=== PATIENT | female | born 1985 | race Asian ===

== ENCOUNTER 2017-01-02 00:12 | Inpatient (IN) | payer BC ==
[2017-01-02] MEDS ORDERED: OBEPIDURAL* 250 ML ONE ×2 (00:41→10:33)
[2017-01-02 00:57] LABS: Hematocrit 33 % (35-47); Hemoglobin 11.6 g/dl (12.0-16.0); Mean Corpuscular HGB Conc 35 g/dl (31-36); Mean Corpuscular Hemoglobin 29 pg (27-31); Mean Corpuscular Volume 82 fL (80-97); Mean Platelet Volume 11 um3 (7.4-10.4); Red Blood Count 4.05 10^6/ul (4.0-5.4); Red Cell Distribution Width 14 % (10.5-15); White Blood Count 7.9 10^3/ul (3.5-10.8)
[2017-01-02] MEDS ORDERED: Nalbuphine* 20 MG/ML 1 ML VIAL IV PRN (01:20)
[2017-01-02] MEDS ORDERED: Promethazine INJ(RESTRICTED)* 25 MG/ML 1 ML VIAL IV ONE (01:22)
[2017-01-02] MEDS ORDERED: Promethazine INJ(RESTRICTED)* 25 MG/ML 1 ML VIAL ONE (01:23)
[2017-01-02] MEDS ORDERED: Nalbuphine* 20 MG/ML 1 ML VIAL ONE (01:23)
[2017-01-02] MEDS ORDERED: Phenylephrine IV* 40 MCG/ML 10 ML SYRINGE IV PUSH PRN ×2 (10:57)
[2017-01-02] MEDS ORDERED: Sodium Citrate/Citric Acid* 15 ML UDC PO PRN (10:57)
[2017-01-02] MEDS ORDERED: Famotidine TAB* 20 MG PO PRN (10:57)
[2017-01-02] MEDS ORDERED: OBEPIDURAL* 250 ML EPIDURAL SCH (11:00)
[2017-01-02] MEDS ORDERED: Oxytocin in LR* 20 UNITS/1,000 ML BAG IVPB ONE (12:55)
[2017-01-02] MEDS ORDERED: Oxytocin in LR* 20 UNITS/1,000 ML BAG IVPB SCH ×2 (13:00→17:00)
[2017-01-02] MEDS ORDERED: Measles, Mumps,Rubella VACC* 0.5 ML/VIAL SUBCUT ONE (16:05)
[2017-01-02] MEDS ORDERED: oxyCODONE/Acetamin 5/325 MG* TAB PO PRN (16:05)
[2017-01-02] MEDS ORDERED: Dibucaine 1% 28.35 GM TUBE PR PRN (16:05)
[2017-01-02] MEDS ORDERED: Acetaminophen TAB* 325 MG PO PRN (16:05)
[2017-01-02] MEDS ORDERED: Glycerin ADULT SUPP PR PRN (16:05)
[2017-01-02] MEDS ORDERED: Witch Hazel PAD* JAR TOPICAL PRN (16:05)
[2017-01-02] MEDS ORDERED: ceFOXitin 2 GM IVPREMIX* 2 GM/50 ML BAG IVPB ONE (16:07)
[2017-01-02] MEDS: Ibuprofen TAB* 600 MG PO PRN (17:11)
[2017-01-02] MEDS ORDERED: Simethicone TAB* 80 MG TAB.CHEW PO SCH (17:30)
[2017-01-02] MEDS: Docusate CAP* 100 MG PO SCH (22:02)
[2017-01-03] MEDS: Ibuprofen TAB* 600 MG PO PRN ×3 (00:24→18:26)
[2017-01-03 07:23] LABS: Hematocrit 25 % (35-47); Hemoglobin 8.3 g/dl (12.0-16.0); Mean Corpuscular HGB Conc 33 g/dl (31-36); Mean Corpuscular Hemoglobin 28 pg (27-31); Mean Corpuscular Volume 82 fL (80-97); Mean Platelet Volume 10 um3 (7.4-10.4); Red Blood Count 3.02 10^6/ul (4.0-5.4); Red Cell Distribution Width 15 % (10.5-15); White Blood Count 10.1 10^3/ul (3.5-10.8)
[2017-01-03 07:30] LABS: Add Diff/Slide Review? Slide Review Added; Comments Flag Yes
[2017-01-03] MEDS ORDERED: Ferrous Gluconate TAB* 324 MG TAB ONE (08:50)
[2017-01-03] MEDS: Docusate CAP* 100 MG PO SCH ×3 (08:59→21:48)
[2017-01-04] MEDS: Docusate CAP* 100 MG PO SCH (08:47)
[2017-01-04 08:55] VITALS: BP 118/74
[2017-01-04] MEDS ORDERED: Influenza VAC *QUAD* 2016-17* 0.5 ML SYRINGE IM ONE (13:10)
--- NOTE | 2017-01-04 13:11 | PTEDU ---
Patient Name: RAJESH CHAPMAN ADELA RAJESH selected video: Never Ever Shake a Baby to view on 01/04/2017 at 1:10:54 PM from [id number]
--- NOTE | 2017-01-04 13:20 | PTEDU ---
Patient Name: RAJESH CHAPMAN ADELA RAJESH selected video: Follow Me Mum: [employer] to view on 01/04/2017 at 1:20:19 PM from [id number]
== END 2017-01-04 15:21 | disposition home or self-care (01) | DRG 542 ==
LOC: MCHOBOUT 00:12 → MCHOB 00:27
PROVIDERS: ADMIT Obstetrics & Gynecology; ATTEND Obstetrics & Gynecology
PROC: 10E0XZZ Delivery of Products of Conception, External Approach (ICD-10-PCS; principal; 2017-01-02)
PROC: 0DQR0ZZ Repair Anal Sphincter, Open Approach (ICD-10-PCS; 2017-01-02)
DX: O32.6XX0 Maternal care for compound presentation, not applicable or unspecified (principal); O09.293 Supervision of pregnancy with other poor reproductive or obstetric history, third trimester; D64.9 Anemia, unspecified; O70.20 Third degree perineal laceration during delivery, unspecified; O62.1 Secondary uterine inertia; O90.81 Anemia of the puerperium; Z3A.39 39 weeks gestation of pregnancy; Z37.0 Single live birth
CPT/HCPCS: 36415; 85025; 85060; 86850; 86900; 86901; 90686; A9270-GY; J0694; J2300; J2550

== ENCOUNTER 2017-03-11 18:22 | Emergency (ER) | payer BC ==
[2017-03-11 18:44] VITALS: BP 100/71
--- NOTE | 2017-03-11 18:57 | UC ---
Hand/Wrist HPI - HPI Summary HPI Summary: complaint of left thumb paoin that started approx 1 week ago denies any trauma or injury sometimes she hears a clicking when she bends her finger hasn't tried any medications or treatments for the pain - History Of Current Complaint Chief Complaint: UCUpperExtremity Stated Complaint: THUMB PAIN Time Seen by Provider: 03/11/17 18:50 Hx Obtained From: Patient - Allergies/Home Medications Allergies/Adverse Reactions: Allergies Allergy/AdvReac Type Severity Reaction Status Date / Time No Known Allergies Allergy Verified 03/11/17 18:36 PMH/Surg Hx/FS Hx/Imm Hx Previously Healthy: Yes - Surgical History Surgical History: None - Family History Known Family History: Negative: Cardiac Disease, Hypertension, Diabetes - Social History Occupation: Employed Full-time Lives: With Family Alcohol Use: None Substance Use Type: None Smoking Status (MU): Never Smoked Tobacco Review of Systems Constitutional: Negative Skin: Negative Eyes: Negative ENT: Negative Respiratory: Negative Cardiovascular: Negative Gastrointestinal: Negative Genitourinary: Negative Motor: Negative Neurovascular: Negative Musculoskeletal: Other: - left thumb pain Neurological: Negative Psychological: Negative All Other Systems Reviewed And Are Negative: Yes Physical Exam Triage Information Reviewed: Yes Appearance: No Pain Distress, Well-Nourished Vital Signs: Initial Vital Signs Temp 97.6 F 03/11/17 18:36 Pulse 71 03/11/17 18:36 Resp 16 03/11/17 18:36 BP 100/71 03/11/17 18:36 Pulse Ox 99 03/11/17 18:36 Vital Signs Reviewed: Yes Eyes: Positive: Conjunctiva Clear Neck: Positive: No Lymphadenopathy Respiratory: Positive: Lungs clear, Normal breath sounds, No respiratory distress Cardiovascular: Positive: RRR, No Murmur, Pulses Normal Abdomen Description: Positive: Nontender, Soft Bowel Sounds: Positive: Present Musculoskeletal: Positive: Other: - LUE- thumb- tenderness in MCP joint- full ROM-no edema negative Phalens sign wrist nontender full ROM Neurological: Positive: Alert Psychological Exam: Normal Skin Exam: Normal Hand/Wrist Course/Dx - Differential Dx/Diagnosis Differential Diagnosis/HQI/PQRI: Carpal Tunnel Syndrome, Sprain, Strain Provider Diagnoses: thumb sprain Discharge - Discharge Plan Condition: Stable Disposition: HOME Patient Education Materials: Finger Sprain (ED), RICE Therapy (ED) Referrals: No Primary Care Phys,NOPCP [Primary Care Provider] - [facility] [place] [facility] [Outside] Additional Instructions: Increase fluids and rest Sandor ibuprofen to reduce inflammation and pain Please review your discharge instructions. If your symptoms do not improve please call your primary care provider or return to urgent care.
--- NOTE | 2017-03-11 19:46 | RAD ---
Indication: Pain in the web of the LEFT thumb and second finger and metacarpal phalangeal joint for one week. . Comparison: None. Technique: AP, lateral, and oblique views LEFT thumb. REPORT AND IMPRESSION: Normal alignment. Negative for fracture or focal osseous lesion. Negative for periosteal reaction. No significant arthropathic change evident. Mild nonfocal soft tissue swelling.
== END 2017-03-11 20:05 | disposition home or self-care (01) ==
LOC: UCEAST 18:22
DX: S63.602A Unspecified sprain of left thumb, initial encounter (principal); X58.XXXA Exposure to other specified factors, initial encounter; Y93.9 Activity, unspecified; Y92.9 Unspecified place or not applicable
CPT/HCPCS: 99211; G0463

== ENCOUNTER 2017-05-09 20:25 | Emergency (ER) | payer BC ==
--- NOTE | 2017-05-09 20:41 | UC ---
Dental HPI - HPI Summary HPI Summary: 31 year old female presents with complains of a chicken bone in right lower molar. - History of Current Complaint Stated Complaint: FO IN TEETH Time Seen by Provider: 05/09/17 20:40 - Allergies/Home Medications Allergies/Adverse Reactions: Allergies Allergy/AdvReac Type Severity Reaction Status Date / Time No Known Allergies Allergy Verified 05/09/17 20:43 PMH/Surg Hx/FS Hx/Imm Hx - Surgical History Surgical History: None - Family History Known Family History: Negative: Cardiac Disease, Hypertension, Diabetes - Social History Alcohol Use: None Substance Use Type: None Smoking Status (MU): Never Smoked Tobacco Review of Systems Constitutional: Negative Skin: Negative Eyes: Negative ENT: Dental Pain - right lower molar pain Respiratory: Negative Cardiovascular: Negative Gastrointestinal: Negative Genitourinary: Negative Motor: Negative Neurovascular: Negative Musculoskeletal: Negative Neurological: Negative Psychological: Negative All Other Systems Reviewed And Are Negative: Yes Physical Exam Triage Information Reviewed: Yes Eye Exam: Normal ENT Exam: Normal Dental: Positive: Other: - chicken bone in right lower molar Neck exam: Normal Neck: Positive: 1 Respiratory Exam: Normal Cardiovascular Exam: Normal Abdominal Exam: Normal Musculoskeletal Exam: Normal Neurological Exam: Normal Psychological Exam: Normal Skin Exam: Normal Dental Complaint Course/Dx - Course Course Of Treatment: small bone removed from right lower molar with pick ups. verbal consent, no anesthesia, no complications. time out 9 pm. minimal blood loss. rinsed with saline/peroxide - Differential Dx/Diagnosis Provider Diagnoses: removal foreign body from right lower molar Discharge - Discharge Plan Condition: Stable Disposition: HOME Prescriptions: Cephalexin CAP* [Keflex 500 CAP*] 500 mg PO TID #30 cap Chlorhexidine MW 0.12% 473ML* [Peridex Mouth Wash 0.12%*] 15 ml MT TID PC #480 btl Patient Education Materials: Soft Tissue Foreign Body (ED) Referrals: No Primary Care Phys,NOPCP [Primary Care Provider] -
[2017-05-09 20:44] VITALS: BP 109/78
== END 2017-05-09 21:21 | disposition home or self-care (01) ==
LOC: UCEAST 20:25
DX: K08.89 Other specified disorders of teeth and supporting structures (principal)
CPT/HCPCS: 99212; G0463

== ENCOUNTER 2018-05-21 16:17 | Emergency (ER) | payer BC ==
[2018-05-21 16:49] VITALS: BP 120/70
--- NOTE | 2018-05-21 17:10 | UC ---
Dental HPI - HPI Summary HPI Summary: This is Joan mireles, documenting for attending, Nayana Blancas MD. This patient is a 32 year old F presenting to [facility] with a chief complaint of swelling of the left upper gums for the past six months. She states that now she is having pain with chewing. Pain is 2/10 upon triage. Denies pain to cheek. She states she has never been to the dentist before. - History of Current Complaint Chief Complaint: UCDentalProblem Stated Complaint: TOOTH ACHE Time Seen by Provider: 05/21/18 17:02 Hx Obtained From: Patient Hx Last Menstrual Period: 05/14/18 Onset/Duration: Lasting Weeks Pain Intensity: 2 Pain Scale Used: 0-10 Numeric Aggravating Factor(s): Chewing - Allergies/Home Medications Allergies/Adverse Reactions: Allergies Allergy/AdvReac Type Severity Reaction Status Date / Time No Known Allergies Allergy Verified 05/21/18 16:49 PMH/Surg Hx/FS Hx/Imm Hx Previously Healthy: Yes - Surgical History Surgical History: None - Family History Known Family History: Negative: Cardiac Disease, Hypertension, Diabetes - Social History Alcohol Use: None Substance Use Type: None Smoking Status (MU): Never Smoked Tobacco Review of Systems Constitutional: Negative ENT: Dental Pain - gum swelling All Other Systems Reviewed And Are Negative: Yes Physical Exam - Summary Physical Exam Summary: Appearance: Well-appearing, Well-nourished Skin: Warm Eyes: Normal ENT: Excessive calculi accumulation of border of the tooth number 1 and gingiva with erythema and tenderness along the gum line Neck: Supple, nontender Respiratory: Clear to auscultation Cardiovascular: Regular rate, regular rhythm. Normal S1, S2. Abdomen: Soft, nontender Musculoskeletal: Normal, Strength/ROM Intact Neurological: Normal, A&Ox3 Psychiatric: Normal General: No acute distress Triage Information Reviewed: Yes Vital Signs: Initial Vital Signs Temp 97.4 F 05/21/18 16:44 Pulse 62 05/21/18 16:44 Resp 16 05/21/18 16:44 BP 120/70 05/21/18 16:44 Pulse Ox 98 05/21/18 16:44 Vital Signs Reviewed: Yes Dental Complaint Course/Dx - Differential Dx/Diagnosis Provider Diagnoses: gingivitis, dental plaque Discharge - Sign-Out/Discharge Documenting (check all that apply): Patient Departure - Discharge Plan Condition: Stable Disposition: HOME Prescriptions: Amoxicillin PO (*) [Amoxicillin 500 MG CAP*] 500 mg PO Q12H 10 Days #20 cap Patient Education Materials: Gingivitis (ED) Additional Instructions: Follow up with dentist JIMENEZ - Billing Disposition and Condition Condition: STABLE Disposition: Home
== END 2018-05-21 17:24 | disposition home or self-care (01) ==
LOC: UCEAST 16:17
DX: K05.10 Chronic gingivitis, plaque induced (principal)
CPT/HCPCS: 99212; G0463

== ENCOUNTER 2018-05-26 18:41 | Emergency (ER) | payer BC ==
[2018-05-26 19:08] VITALS: BP 105/67
--- NOTE | 2018-05-26 19:42 | UC ---
General HPI - HPI Summary HPI Summary: This is aline Gloria documenting for attending Benita Romano M.D. Patient is a 32 y/o female who presents to [facility] [place] [place] c/o general illness for 3 days. She c/o runny nose, abdominal pain, headache, body aches, throat pain, ear pain, CP with coughing, wet cough, difficulty swallowing, and constipation. She denies any decreased appetite, N/V, or fever. Patient was here last week for a gum infection. Patient states her last BM was 3 days ago, and she normally has one every day. She also states that the muscle aches occur between 5 and 6 pm every evening. Patients and daughter had a cough last week, but are better now and didnt display her other symptoms. She flew back from [place] 3 weeks ago. - History of Current Complaint Chief Complaint: UCGeneralIllness Stated Complaint: COUGH Time Seen by Provider: 05/26/18 19:25 Hx Obtained From: Patient, Family/Explosive Operator Fuse - Hx Last Menstrual Period: 05/14/18 Onset/Duration: Gradual Onset, Lasting Days - 3, Still Present Current Severity: Moderate Pain Intensity: 6 Associated Signs & Symptoms: Positive: Abdominal Pain, Cough, Chest Pain, Headache, Other - Constipation. Negative: Diarrhea, Fever, Nausea, Vomiting Related Hx: Recent Illness - at [facility] 1 week ago for gum infection - Allergy/Home Medications Allergies/Adverse Reactions: Allergies Allergy/AdvReac Type Severity Reaction Status Date / Time No Known Allergies Allergy Verified 05/26/18 19:08 PMH/Surg Hx/FS Hx/Imm Hx Previously Healthy: Yes Endocrine History: Other Other Endocrine History: NEGATIVE: Diabetes Cardiovascular History: Other Other Cardiovascular History: NEGATIVE: HTN - Surgical History Surgical History: None - Family History Known Family History: Positive: None - parents alive and healthy Negative: Cardiac Disease, Hypertension, Diabetes - Social History 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 Lives: With Family Alcohol Use: None Substance Use Type: None Smoking Status (MU): Never Smoked Tobacco Review of Systems Constitutional: Other - body aches, NEGATIVE: fever ENT: Sore Throat, Ear Ache, Nasal Discharge, Other - Difficulty swallowing, Gum infection Respiratory: Cough - Wet Cardiovascular: Chest Pain - with coughing Gastrointestinal: Abdominal Pain, Other - constipation, NEGATIVE: nausea, vomiting, decreased appetite Neurological: Headache All Other Systems Reviewed And Are Negative: Yes Physical Exam Triage Information Reviewed: Yes Appearance: Ill-Appearing - looks mildly unwell, congested, occasional cough Vital Signs: Initial Vital Signs Temp 99.0 F 05/26/18 19:02 Pulse 90 05/26/18 19:02 Resp 20 05/26/18 19:02 BP 105/67 05/26/18 19:02 Pulse Ox 98 05/26/18 19:02 Eyes: Positive: Conjunctiva Clear ENT: Positive: Pharynx normal Dental Exam: Other - upper second molar with mild inflammation at the gum lie. Neck: Positive: Supple, Nontender, No Lymphadenopathy Respiratory: Positive: Lungs clear, Normal breath sounds Cardiovascular: Positive: RRR, No Murmur Abdomen Description: Positive: Nontender, No Organomegaly, Soft Bowel Sounds: Positive: Present Psychological Exam: Normal Skin Exam: Normal Course/Dx - Course Course Of Treatment: symptomatic treatment of viral respiratory illness. - Differential Dx - Multi-Symptom Provider Diagnoses: viral URI. constipation Discharge - Sign-Out/Discharge Documenting (check all that apply): Patient Departure - Discharge Plan Condition: Stable Disposition: HOME Patient Education Materials: Constipation (ED), Upper Respiratory Infection (ED ) Referrals: No Primary Care Phys,NOPCP [Primary Care Provider] - Additional Instructions: your cough and sore throat are consistent with a viral illness: continue symptomatic treatment with ibuprofen for pain, or you can continue to use the paracetamol which you have from [place]. You should see improvement over the next week. Complete the course of amoxicillin for dental infection. For constipation, you might try a stool softener such as docusate [id number] once daily to help with passage. Other options include trying prunes or prune juice, and there is a herbal tea called Smooth Move (available [employer] or [employer]) which helps to promote stool passage. As discussed, you can call the Health Department or [facility] to check on getting a flu shot before you return to [place]. - Billing Disposition and Condition Condition: STABLE Disposition: Home
== END 2018-05-26 20:08 | disposition home or self-care (01) ==
LOC: UCEAST 18:41
DX: J06.9 Acute upper respiratory infection, unspecified (principal); K59.00 Constipation, unspecified; R10.9 Unspecified abdominal pain
CPT/HCPCS: 99211; G0463